=== PATIENT | female | born 1995 | race American Indian/Alaskan Native ===

== ENCOUNTER 2017-05-24 08:46 | Emergency (ER) | payer MEDICAID, OTHER ==
[2017-05-24 09:12] LABS: Bilirubin,Urine NEG (Negative); Blood,Urine NEG (Negative); Color,Urine Yellow (Yellow); Mucus,Urine FEW /HPF; Protein,Urine <15 mg/dL mg/dL (Negative); Urobilinogen,Urine < 2.0 mg/dL (<2.0)
[2017-05-24 09:13] LABS: HCG Qualitative,Urine Positive (Negative)
--- NOTE | 2017-05-24 12:12 | Emergency Department Report ---
ED Abdominal Pain HPI - General Chief Complaint: Urogenital-Female Stated Complaint: PAIN IN MY UTERUS Time Seen by Provider: 05/24/17 11:20 Source: patient, family Mode of arrival: Ambulatory Limitations: No Limitations - History of Present Illness Initial Comments: Patient reports that she is having pain in her uterus and pelvic area for 2 weeks. She says she has a pinkish discharge after urinating. Patient cannot tell me when her last menstrual cycle was. She said she has PCO as and she thinks her last menstrual cycle was last year but she cannot pinpoint to date. She told triage that it was 10/02/2014. Denies any nausea or vomiting. Denies any urinary burning frequency or urgency. Denies any back pain. Denies any concerns for STD. She is also report that she has some itching inside vaginal area. Pain is 7 out of 10 and crampy comes and goes. Nothing makes it better and nothing makes it worse and she said she took Motrin pelvic pain which helps a little. MD Complaint: abdominal pain, other (vaginal discharge and itching) Onset/Timin -: week(s) Location: suprapubic Radiation: none Migration to: no migration Severity: severe Severity scale (0 -10): 7 Quality: cramping Improves With: medication Worsens With: other (none) Context: other (unsure) Associated Symptoms: other (vaginal discharge). denies: nausea, vomiting, diarrhea, fever, chills, constipation, dysuria, hematemesis, hematochezia, melena, hematuria, anorexia, syncope Treatments Prior to Arrival: NSAIDs - Related Data LMP (females 10-50): unknown (patient reports that she cannot remember when her last menstrual period was because she has PCO as she reported to triage nurse that was on 10/02/2014) Previous Rx's Medication Instructions Recorded Last Taken Type Ibuprofen [Motrin 600 MG tab] 600 mg PO Q8H PRN #30 tablet 10/24/14 Unknown Rx Sulfamethoxazole/Trimethoprim 1 each PO BID #10 tablet 10/24/14 Unknown Rx [Bactrim DS TAB] methOCARBAMOL [Robaxin TAB] 500 mg PO BID #10 tab 10/24/14 Unknown Rx traMADol [Ultram 50 MG tab] 50 mg PO Q6HR PRN #14 tablet 10/24/14 Unknown Rx Fluconazole [Diflucan TAB] 100 mg PO QDAY 2 Days #2 tablet 05/24/17 Unknown Rx Vit No.130/Iron/Folic 1 each PO QDAY 30 Days #30 tablet 05/24/17 Unknown Rx [ Tablet] metroNIDAZOLE [Flagyl TAB] 250 mg PO Q12HR 7 Days #14 tab 05/24/17 Unknown Rx Allergies Allergy/AdvReac Type Severity Reaction Status Date / Time No Known Allergies Allergy Verified 10/24/14 22:49 ED Review of Systems ROS: Stated complaint: PAIN IN MY UTERUS Other details as noted in HPI Comment: All other systems reviewed and negative Constitutional: no symptoms reported Respiratory: no symptoms reported Cardiovascular: denies: chest pain, palpitations, dyspnea on exertion, orthopnea , edema, syncope, paroxysmal nocturnal dyspnea Gastrointestinal: abdominal pain. denies: nausea, vomiting, diarrhea, constipation, hematemesis, melena, hematochezia Genitourinary: hematuria, discharge, abnormal menses. denies: urgency, dysuria , frequency Musculoskeletal: denies: back pain, joint swelling, arthralgia, myalgia Skin: denies: rash Neurological: denies: headache ED Past Medical Hx - Past Medical History Previous Medical History?: Yes Additional medical history: scoliosis, PCOS - Surgical History Past Surgical History?: Yes Additional Surgical History: Back surgery - Family History Family history: hypertension - Social History Smoking Status: Never Smoker Substance Use Type: Non Opiate Pain - Medications Home Medications: Home Medications Medication Instructions Recorded Confirmed Last Taken Type Ibuprofen [Motrin 600 MG tab] 600 mg PO Q8H PRN #30 tablet 10/24/14 Unknown Rx Sulfamethoxazole/Trimethoprim 1 each PO BID #10 tablet 10/24/14 Unknown Rx [Bactrim DS TAB] methOCARBAMOL [Robaxin TAB] 500 mg PO BID #10 tab 10/24/14 Unknown Rx traMADol [Ultram 50 MG tab] 50 mg PO Q6HR PRN #14 tablet 10/24/14 Unknown Rx Fluconazole [Diflucan TAB] 100 mg PO QDAY 2 Days #2 tablet 05/24/17 Unknown Rx Vit No.130/Iron/Folic 1 each PO QDAY 30 Days #30 tablet 05/24/17 Unknown Rx [ Tablet] metroNIDAZOLE [Flagyl TAB] 250 mg PO Q12HR 7 Days #14 tab 05/24/17 Unknown Rx ED Physical Exam - General Limitations: No Limitations General appearance: alert, in no apparent distress - Head Head exam: Present: atraumatic, normocephalic, normal inspection - Eye Eye exam: Present: normal appearance, PERRL, EOMI Pupils: Present: normal accommodation - ENT ENT exam: Present: normal exam, normal orophraynx, mucous membranes moist, TM's normal bilaterally, normal external ear exam - Neck Neck exam: Present: normal inspection, full ROM, other (no C-spine tenderness). Absent: tenderness, lymphadenopathy - Respiratory Respiratory exam: Present: normal lung sounds bilaterally. Absent: respiratory distress, chest wall tenderness - Cardiovascular Cardiovascular Exam: Present: regular rate, normal rhythm, normal heart sounds. Absent: systolic murmur, diastolic murmur - GI/Abdominal GI/Abdominal exam: Present: soft, normal bowel sounds. Absent: distended, tenderness, guarding, rebound, rigid, organomegaly, mass, bruit, pulsatile mass , hernia - External exam: Present: normal external exam. Absent: erythema, swelling, lesions, lacerations, ecchymosis, bleeding Speculum exam: Present: vaginal discharge, cervical discharge. Absent: normal speculum exam, erythema, vaginal bleeding, foreign body, tissue, laceration Bi-manual exam: Present: normal bi-manual exam. Absent: cervical motion tendernes, adnexal tenderness, adnexal mass, uterine enlargement, uterine tenderness - Expanded Exam Expanded Female exam: Absent: vaginal laceration, tissue present in vagina, herpetic lesions, vulvar erythema, vulvar tenderness, foreign body External exam: Present: normal Amniotic fluid: Present: none Speculum exam: Present: cervical OS closed - Extremities Exam Extremities exam: Present: normal inspection, full ROM, normal capillary refill , other (no clubbing, cyanosis or edema. +2 pulses to all extremities and no neurovascular compromise.). Absent: tenderness, pedal edema, joint swelling, calf tenderness - Back Exam Back exam: Present: normal inspection, full ROM, other (in place without any difficulties). Absent: tenderness, CVA tenderness (R), CVA tenderness (L), muscle spasm, paraspinal tenderness, vertebral tenderness, rash noted - Neurological Exam Neurological exam: Present: alert, oriented X3, normal gait, reflexes normal. Absent: motor sensory deficit - Psychiatric Psychiatric exam: Present: normal affect, normal mood - Skin Skin exam: Present: warm, dry, intact, normal color. Absent: rash ED Course Vital Signs 05/24/17 05/24/17 08:52 14:58 Temperature 97.8 F 98 F Pulse Rate 90 80 Respiratory 18 16 Rate Blood Pressure 120/74 Blood Pressure 105/70 [Left] O2 Sat by Pulse 100 99 Oximetry - Reevaluation(s) Reevaluation #1: 05/24/17 15:11 Patient stable throughout ED stay. ED Medical Decision Making - Lab Data Result diagrams: 05/24/17 12:19 05/24/17 12:19 Lab Results 05/24/17 05/24/17 05/24/17 Range/Units 09:01 12:19 12:19 WBC 7.9 (4.5-11.0) K/mm3 RBC 4.58 (3.65-5.03) M/mm3 Hgb 13.4 (10.1-14.3) gm/dl Hct 39.1 (30.3-42.9) % MCV 85 (79-97) fl MCH 29 (28-32) pg MCHC 34 (30-34) % RDW 13.7 (13.2-15.2) % Plt Count 260 (140-440) K/mm3 Lymph % (Auto) 31.0 (13.4-35.0) % [place] % (Auto) 7.8 H (0.0-7.3) % Eos % (Auto) 1.0 (0.0-4.3) % Baso % (Auto) 0.5 (0.0-1.8) % Lymph # 2.4 (1.2-5.4) K/mm3 [place] # 0.6 (0.0-0.8) K/mm3 Eos # 0.1 (0.0-0.4) K/mm3 Baso # 0.0 (0.0-0.1) K/mm3 Seg Neutrophils % 59.7 (40.0-70.0) % Seg Neutrophils # 4.7 (1.8-7.7) K/mm3 Sodium 134 L (137-145) mmol/L Potassium 4.3 (3.6-5.0) mmol/L Chloride 97.9 L (98-107) mmol/L Carbon Dioxide 22 (22-30) mmol/L Anion Gap 18 mmol/L BUN 6 L (7-17) mg/dL Creatinine 0.5 L (0.7-1.2) mg/dL Estimated GFR > 60 ml/min BUN/Creatinine Ratio 12 % Glucose 90 (65-100) mg/dL Calcium 8.9 (8.4-10.2) mg/dL HCG, Quant (0-4) mIU/mL Urine Color Yellow (Yellow) Urine Turbidity Clear (Clear) Urine pH 7.0 (5.0-7.0) Ur Specific [place] 1.021 (1.003-1.030) Urine Protein <15 mg/dl (Negative) mg/dL Urine Glucose (UA) Neg (Negative) mg/dL Urine Ketones Neg (Negative) mg/dL Urine Blood Neg (Negative) Urine Nitrite Neg (Negative) Urine Bilirubin Neg (Negative) Urine Urobilinogen < 2.0 (<2.0) mg/dL Ur Leukocyte Esterase Neg (Negative) Urine WBC (Auto) 5.0 (0.0-6.0) /HPF Urine RBC (Auto) 3.0 (0.0-6.0) /HPF U Epithel Cells (Auto) 1.0 (0-13.0) /HPF Urine Mucus Few /HPF Urine Yeast (Budding) 3+ /HPF Urine HCG, Qual Positive A (Negative) Blood Type Antibody Screen 05/24/17 05/24/17 Range/Units 12:19 12:19 WBC (4.5-11.0) K/mm3 RBC (3.65-5.03) M/mm3 Hgb (10.1-14.3) gm/dl Hct (30.3-42.9) % MCV (79-97) fl MCH (28-32) pg MCHC (30-34) % RDW (13.2-15.2) % Plt Count (140-440) K/mm3 Lymph % (Auto) (13.4-35.0) % [place] % (Auto) (0.0-7.3) % Eos % (Auto) (0.0-4.3) % Baso % (Auto) (0.0-1.8) % Lymph # (1.2-5.4) K/mm3 [place] # (0.0-0.8) K/mm3 Eos # (0.0-0.4) K/mm3 Baso # (0.0-0.1) K/mm3 Seg Neutrophils % (40.0-70.0) % Seg Neutrophils # (1.8-7.7) K/mm3 Sodium (137-145) mmol/L Potassium (3.6-5.0) mmol/L Chloride (98-107) mmol/L Carbon Dioxide (22-30) mmol/L Anion Gap mmol/L BUN (7-17) mg/dL Creatinine (0.7-1.2) mg/dL Estimated GFR ml/min BUN/Creatinine Ratio % Glucose (65-100) mg/dL Calcium (8.4-10.2) mg/dL HCG, Quant 031819 H (0-4) mIU/mL Urine Color (Yellow) Urine Turbidity (Clear) Urine pH (5.0-7.0) Ur Specific [place] (1.003-1.030) Urine Protein (Negative) mg/dL Urine Glucose (UA) (Negative) mg/dL Urine Ketones (Negative) mg/dL Urine Blood (Negative) Urine Nitrite (Negative) Urine Bilirubin (Negative) Urine Urobilinogen (<2.0) mg/dL Ur Leukocyte Esterase (Negative) Urine WBC (Auto) (0.0-6.0) /HPF Urine RBC (Auto) (0.0-6.0) /HPF U Epithel Cells (Auto) (0-13.0) /HPF Urine Mucus /HPF Urine Yeast (Budding) /HPF Urine HCG, Qual (Negative) Blood Type O POSITIVE Antibody Screen Negative - Radiology Data Radiology results: report reviewed OB ultrasound transvaginal and transabdominal reveals viable single intrauterine at 9 weeks and 5 days. Cervix is normal. Ovaries are normal. heart rate is at 172 bpm - Medical Decision Making ED course: Patient here complaining of pelvic pain and uterine pain for 2 weeks. She also reported that she was having pinkish discharge after urinating. test positive. Quant hCG positive. Ultrasound shows patient with 9 weeks and 5 days IUP. CBC stable, BMP stable except for some minor abnormalities, urinalysis is stable except she has 3+ blood and yeast in her urine. Wet prep with less than 20% clue cell, no yeast and no Trichomonas. Gonorrhea and chlamydia is pending. I discussed the patient and her blood resolved and ultrasound result. She voiced understanding. 1 para 0. Patient was understanding of diagnosis and treatment plan I told her she'll need to follow-up at Dr. Encarnacion's office who is [employer] REPRESENTATIVE and he works at of [facility]. I discussed starting care and vitamin and coverage for yeast urinary tract infection and for bacterial vaginosis. Patient discharged home with her family with prescription for vitamin, Diflucan and Flagyl Critical care attestation.: If time is entered above; I have spent that time in minutes in the direct care of this critically ill patient, excluding procedure time. ED Disposition Clinical Impression: Bacterial vaginosis, Threatened miscarriage in early , Yeast infection Abdominal pain during Qualifiers: Trimester: first trimester Qualified Code(s): O26.891 - Other specified related conditions, first trimester; R10.9 - Unspecified abdominal pain Disposition: - TO HOME OR SELFCARE Is pt being admited?: No Does the pt Need Aspirin: No Condition: Stable Instructions: Bacterial Vaginosis (ED), Abdominal Pain (ED), Abdominal Pain in (ED), Vaginitis (ED), Threatened Miscarriage (ED) Additional Instructions: Please start taking vitamins Diflucan 100 mg 2 days for yeast infection Flagyl 250 mg 7 days for bacterial vaginosis Please follow up with [facility] please see Dr. Binh Encarnacion was the [employer] SAL[employer] REPRESENTATIVE. Please call tomorrow to schedule an appointment. If you have increasing vaginal bleeding, increase in abdominal pain please return to the hospital otherwise follow-up with Dr. Encarnacion for care. Please drink plenty of fluid. Prescriptions: Fluconazole [Diflucan TAB] 100 mg PO QDAY 2 Days #2 tablet metroNIDAZOLE [Flagyl TAB] 250 mg PO Q12HR 7 Days #14 tab Vit No.130/Iron/Folic [ Tablet] 1 each PO QDAY 30 Days #30 tablet Referrals: BINH ENCARNACION MD [Staff Physician] - 05/26/17 [facility] [Outside] - 05/26/17 Forms: STI Treatment and Prevention, Work/School Release Form(ED)
[2017-05-24 12:38] LABS: Basophils % (Auto) 0.5 % (0.0-1.8); Eosinophils # (Auto) 0.1 K/mm3 (0.0-0.4); Hematocrit 39.1 % (30.3-42.9); Hemoglobin 13.4 gm/dl (10.1-14.3); Lymphocytes # (Auto) 2.4 K/mm3 (1.2-5.4); Mean Corpuscular HGB Conc 34 % (30-34); Mean Corpuscular Hemoglobin 29 pg (28-32); Mean Corpuscular Volume 85 fl (79-97); Monocytes # (Auto) 0.6 K/mm3 (0.0-0.8); Monocytes % (Auto) 7.8 % (0.0-7.3); Platelet Count 260 K/mm3 (140-440); Red Blood Count 4.58 M/mm3 (3.65-5.03); Red Cell Distribution Width 13.7 % (13.2-15.2)
[2017-05-24 13:42] LABS: BUN/Creatinine Ratio 12; Blood Urea Nitrogen 6 mg/dL (7-17); Calcium 8.9 mg/dL (8.4-10.2); Hemolysis Index 18
--- NOTE | 2017-05-24 14:16 | Ultrasound Report ---
ULTRASOUND OB LESS THAN 14 WEEKS FETUS ULTRASOUND OB TRANSVAGINAL HISTORY: Pelvic pain during , vaginal bleeding. COMPARISON: None. TECHNIQUE: Transabdominal and transvaginal ultrasound with color doppler interrogation. FINDINGS: Uterus: The uterus measures 9.7 x 7.3 x 7.1 cm. No uterine mass. The cervix is unremarkable. Endometrium: An intrauterine gestational sac is identified containing a pole and yolk sac. Heart rate measures 172 beats per minute. [place]-rump length measures 29 mm which correlates with a 9 week 5 day . Estimated due date is 12/22/17. Right ovary: 3.6 x 2.5 x 3.6 cm. No focal abnormality. Left ovary: 3.1 x 1.9 x 3.8 cm. No focal abnormality. No pelvic fluid or mass is identified. Normal color doppler interrogation. IMPRESSION: Viable single intrauterine as described. No acute abnormality is appreciated.
[2017-05-24 14:59] VITALS: BP 105/70
== END 2017-05-24 15:47 | disposition home or self-care (01) ==
LOC: ED 08:46
DX: O26.891 Other specified pregnancy related conditions, first trimester (principal); Z3A.01 Less than 8 weeks gestation of pregnancy
CPT/HCPCS: 36415; 76801; 76817; 80048; 81001; 81025; 84702; 85025; 86850; 86900; 86901; 87210; 87591

== ENCOUNTER 2020-09-17 17:54 | Emergency (ER) | payer MEDICAID, OTHER ==
[2020-09-17 19:27] VITALS: BP 119/77
[2020-09-17] MEDS ORDERED: IBUPROFEN 600 MG TAB PO ONE (21:33)
[2020-09-17] MEDS ORDERED: ACETAMINOPHEN 500 MG TAB PO ONE (21:33)
--- NOTE | 2020-09-17 22:33 | Cat Scan Report ---
CT CERVICAL SPINE WITHOUT CONTRAST INDICATION: [facility] with injury - now with neck pain. TECHNIQUE: Axial CT images of the spine were obtained. Sagittal and coronal reformatted images were produced. Al l CT scans at this location are performed using CT dose reduction for ALARA by means of automated exp osure control. COMPARISON: None available. FINDINGS: ACUTE FRACTURE(S) OR SUBLUXATION: None. SPINAL DEGENERATIVE CHANGES: No significant degenerative changes. PARASPINAL SOFT TISSUES: No soft tissue swelling or other acute abnormalities. ADDITIONAL FINDINGS: No significant additional findings. IMPRESSION: 1. No acute fracture or subluxation in the spine in neutral position. Signer Name: Gage Donahue MD Signed: 09/17/2020 10:29 PM Workstation Name: [id number]
[2020-09-17 23:07] LABS: HCG Qualitative,Urine Negative (Negative)
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
== END 2020-09-18 01:00 | disposition home or self-care (01) ==
LOC: ED 17:54
DX: S29.012A Strain of muscle and tendon of back wall of thorax, initial encounter (principal); S20.219A Contusion of unspecified front wall of thorax, initial encounter; M62.838 Other muscle spasm; Z98.890 Other specified postprocedural states; T14.8XXA Other injury of unspecified body region, initial encounter; V89.2XXA Person injured in unspecified motor-vehicle accident, traffic, initial encounter; Y93.89 Activity, other specified; Y92.89 Other specified places as the place of occurrence of the external cause; Y99.8 Other external cause status
CPT/HCPCS: 71046; 72070; 72100; 72125; 81025; 99284